=== PATIENT | male | born 1995 | race Hispanic/Latino ===

== ENCOUNTER 2021-09-14 17:03 | Emergency (ER) | payer OTHER ==
[~2021-09-14] VITALS: Ht 177.8 cm; Wt 83.9 kg
[2021-09-14 17:09] VITALS: BP 115/65
[2021-09-14] MEDS ORDERED: IBUP-2070 PO (19:52)
[2021-09-14] MEDS ORDERED: IBUPROFEN 600 MG TABLET PO ONE (20:00)
== END 2021-09-14 20:02 | disposition home or self-care (01) ==
LOC: EDH 17:03
DX: S62.612A Displaced fracture of proximal phalanx of right middle finger, initial encounter for closed fracture (principal); Z90.49 Acquired absence of other specified parts of digestive tract; Z90.89 Acquired absence of other organs; W22.01XA Walked into wall, initial encounter; Y93.89 Activity, other specified; Y92.89 Other specified places as the place of occurrence of the external cause; Y99.8 Other external cause status
CPT/HCPCS: 29130; 73130